=== PATIENT | male | born 1980 | race American Indian/Alaskan Native ===

== ENCOUNTER 2022-02-12 23:05 | Emergency (ER) | payer SELFPAY ==
--- NOTE | 2022-02-12 23:51 | Emergency Department Report ---
Upper Extremity - HPI Chief Complaint: Extremity Injury, Upper Stated Complaint: DISLOCATED RT SHOULDER Time Seen by Provider: 02/12/22 23:23 Upper Extremity: Right Shoulder Occurred When: Today Mechanism: Fall Severity: severe Symptoms: Yes Pain with Movement, Yes Deformity, Yes Limited Range of Movement, No Numbness, No Weakness, No Swelling, No Bruising/Ecchymosis, No Laceration or Abrasion ED Review of Systems ROS: Stated complaint: DISLOCATED RT SHOULDER Other details as noted in HPI Comment: All other systems reviewed and negative Constitutional: no symptoms reported Eyes: denies: eye pain, eye discharge, vision change Respiratory: denies: no symptoms reported, cough, orthopnea, shortness of breath, SOB with exertion, SOB at rest, stridor, wheezing Cardiovascular: denies: chest pain, palpitations, dyspnea on exertion, orthopnea, edema, syncope, paroxysmal nocturnal dyspnea Endocrine: denies: no symptoms reported, excessive sweating, flushing, intolerance to cold, intolerance to heat, increased hunger, increased thirst, increased urine, unexplained weight gain, unexplained weight loss Gastrointestinal: denies: abdominal pain, nausea, vomiting, diarrhea, constipation, hematemesis, melena Genitourinary: denies: urgency, dysuria, frequency, hematuria, discharge, testicular pain, testicular mass, other Musculoskeletal: denies: back pain, joint swelling, arthralgia Skin: denies: rash, lesions, change in color, change in hair/nails, pruritus Neurological: denies: headache, numbness, paresthesias, confusion, abnormal gait, vertigo, other Psychiatric: denies: anxiety, depression, auditory hallucinations, visual hallucinations, homicidal thoughts, suicidal thoughts Hematological/Lymphatic: denies: easy bleeding, easy bruising, swollen glands ED Past Medical Hx - Past Medical History Hx Hypertension: Yes Hx Congestive Heart Failure: Yes Hx Diabetes: No - Surgical History Past Surgical History?: No - Social History Smoking Status: Never Smoker Substance Use Type: None - Medications Home Medications: Home Medications Medication Instructions Recorded Confirmed Last Taken Type Ibuprofen [Motrin 800 MG tab] 800 mg PO Q8HR PRN 10 Days #30 02/13/22 Unknown Rx tablet traMADoL [Ultram 50 MG tab] 50 mg PO Q6HR PRN 3 Days #12 tablet 02/13/22 Unknown Rx Upper Extremity Exam - Exam General: Vital signs noted. No distress. Alert and acting appropriately. Head and Torso: No HEENT Abnormality, No Neck Tenderness, No Chest/Lungs Abnormality, No Abdominal Tenderness, No Back Tenderness Shoulder Exam: Yes Shoulder Tenderness, Yes Shoulder Deformity, No Clavicle Tenderness, No Normal Range of Motion in Shoulder (pt has severe pain; arm abducted and being held on box), No AC Joint Tenderness Arm Exam: No Arm/Humerus Tenderness, No Arm Deformity Elbow: No Elbow Tenderness, No Normal Range of Motion in Elbow, No Elbow Deformity Forearm: No Forearm Tenderness, No Forearm Deformity, No Pain with Pronation, No Pain with Supination Wrist: No Wrist Tenderness, No Normal ROM in Wrist, No Wrist Deformity, No Snuffbox Tenderness, No Pain with Axial Thumb Compression Hand: No Hand Tenderness, No Hand Deformity, No Digit Tenderness, No Normal ROM in Digit(s), No Digit(s) Deformity CMS Exam: No Broken Skin, No Normal Distal Pulses, No Normal Capillary Refill, No Normal Distal Sensation ED Course - Reevaluation(s) Reevaluation #1: 02/12/22 23:53 pt ordered for analgesics; awaiting administration of analgesics by his emergency department nurse, Edith. Plan for procedural sedation discussed at length with the patient. He verbalized understanding Reevaluation #2: 02/13/22 01:32 pt is well appearing; he is laughing, smiling, and comfortable appearing; denies any new or evolving pain , weakness or paresthesias in his right upper extremity, repeat x-ray results discussed at length with the patient and his w shanique, patient verbalized understanding, advised to keep sling in place until he is cleared by orthopedic surgeon on follow-up appointment - Moderate Sedation Indications: fracture/dislocation redu ASA Class: III Mallampati Airway Score: 4 Time of Last PO Intake: 19:30 Preparation: bus driver/monitor applied, pulse oximeter, capnometry used, supplemental O2 applied, suction/airway equipment at bedside, IV secured Ketamine: IV Ketamine Dose: 100 (mg) IV Propofol Dose (mgs): 100 (mg) Reversal Agents Used: other (none) Complications: none Interventions: other (n/a) Patient Tolerated Procedure: well, no complications - Orthopedic Joint Reduction Joint #1 Consent Obtained: verbal consent Time Out Performed: Yes Side: right Joint Reduction Location: shoulder Analgesia: moderate sedation Shoulder Technique Used (if applicable): external rotation Technique Used: direct manipulation Post-Reduction Neuro Exam: intact Post-Reduction Vascular Exam: intact Post Reduction X-Ray Obtained: Yes Post Reduction X-Ray Results: reduced (pt given ketamine 100mg IVP, and propofol 100mg IVP; shoulder was reduced on first attempt successfully; patient tolerated procedure without difficulty) Splint Applied: Yes Patient Tolerated Procedure: well ED Medical Decision Making - Lab Data Result diagrams: 02/13/22 00:00 02/13/22 00:00 - Radiology Data Radiology results: report reviewed - Medical Decision Making 41-year-old morbidly obese male presents for evaluation of traumatic right shoulder dislocation status post mechanical slip and fall while at work. Patient denies pain to any other location of his body denies any head injury loss of consciousness neck pain or paresthesias. Vital signs stable. Patient neurovascular intact. X-rays obtained which confirmed shoulder dislocation. Patient underwent procedural sedation by me and his shoulder was reduced directly by me at his bedside. He tolerated this procedure without incident and during the procedure he received a total of 100 mg of ketamine IV, and 100 mg of propofol IV. Post reduction x-rays obtained which consists firmed successful r eduction of shoulder dislocation. Neurovascular status rechecked again in patient's right upper extremity and he remained normal and intact. Sling was immediately applied. Patient given Toradol for additional pain management. He was advised to remain in his sling until he is cleared by follow-up orthopedic surgeon, Dr. Amaya. His information was provided to the patient at the time of discharge. No further emergent work-up warranted. Patient stable for discharge to home. Critical Care Time: No Critical care attestation.: If time is entered above; I have spent that time in minutes in the direct care of this critically ill patient, excluding procedure time. ED Disposition Clinical Impression: Dislocation, shoulder closed Disposition: HOME / SELF CARE / HOMELESS Is pt being admited?: No Does the pt Need Aspirin: No Condition: Stable Instructions: Shoulder Dislocation, Byeh-by-Pcmw, How to Use a Shoulder Immobilizer Additional Instructions: A dislocation occurs when any bone is moved out of its normal anatomical position or place in the body. You sustained a dislocation of your right shoulder. It was reduced today in the emergency department which means it was put back into place. Please keep your sling on continuously until you are cleared by the follow-up orthopedic surgeon. Telephoned Dr. Amaya, the on-call orthopedic surgeon, to schedule an immediate outpatient follow-up appointment for reassessment and further management. This is very important. Avoid any sudden movements using your shoulder. This includes movements such as raising your arms to put on close, raising your arm to put something into or remove something for cabinet, etc. For any pain that you may experience, take ibuprofen as needed for pain. Alternate ibuprofen with acetaminophen for additional pain management. If your pain is not improved or controlled with either ibuprofen alone, or alternating dosages of ibuprofen and acetaminophen, you may take tramadol. Given that tramadol is a narcotic, it should not be taken if you are going to operate any heavy machinery such as drive a car. Return to the nearest emergency department soon as possible if you develop recurrent shoulder dislocation, numbness in your arm, weakness in your arm, or if any other new worrisome symptoms develop Prescriptions: Ibuprofen [Motrin 800 MG tab] 800 mg PO Q8HR PRN 10 Days #30 tablet PRN Reason: Pain, Moderate (4-6) traMADoL [Ultram 50 MG tab] 50 mg PO Q6HR PRN 3 Days #12 tablet PRN Reason: Pain Referrals: JL AMAYA MD [Staff Physician] - 3-5 Days
[2022-02-12] MEDS: ONDANSETRON 4 MG/2 ML INJ IV ONE ×2 (23:53→23:54)
[2022-02-12] MEDS: SODIUM CHLORIDE 0.9% 1000 ML 1,000 ML IV ONE (23:54)
--- NOTE | 2022-02-13 | XRay Report ---
RIGHT SHOULDER 3 VIEWS INDICATION / CLINICAL INFORMATION: r/o R shoulder dislocation. COMPARISON: None available. FINDINGS: BONES / JOINT(S): Negative for fracture. Subcoracoid dislocation of the humeral head. No significant arthritis. SOFT TISSUES: No significant abnormality. ADDITIONAL FINDINGS: None. Signer Name: Johnathan Rodriguez MD Signed: 02/12/2022 11:55 PM Workstation Name: [id number]
[2022-02-13] MEDS ORDERED: propofoL 200 MG/20 ML VIAL IV ONE (00:07)
[2022-02-13] MEDS ORDERED: KETAMINE 500 MG/5 ML VIAL MDV IV ONE (00:07)
[2022-02-13] MEDS ORDERED: MORPHINE 4 MG/1 ML INJ IV ONE (00:16)
[2022-02-13 00:20] LABS: Basophils # (Auto) 0.1 K/mm3 (0.0-0.1); Basophils % (Auto) 0.9 % (0.0-1.8); Eosinophils % (Auto) 0.5 % (0.0-4.3); Hematocrit 44.3 % (35.5-45.6); Hemoglobin 14.6 gm/dl (11.8-15.2); Lymphocytes # (Auto) 1.1 K/mm3 (1.2-5.4); Lymphocytes % (Auto) 14.9 % (13.4-35.0); Mean Corpuscular HGB Conc 33 % (32-34); Mean Corpuscular Volume 88 fl (84-94); Monocytes # (Auto) 0.5 K/mm3 (0.0-0.8); Monocytes % (Auto) 6.7 % (0.0-7.3); Platelet Count 225 K/mm3 (140-440); Red Blood Count 5.02 M/mm3 (3.65-5.03); Red Cell Distribution Width 14.7 % (13.2-15.2)
[2022-02-13 00:29] LABS: BUN/Creatinine Ratio 8; Blood Urea Nitrogen 11 mg/dL (9-20); Calcium 9.4 mg/dL (8.4-10.2); Hemolysis Index 11
--- NOTE | 2022-02-13 01:24 | XRay Report ---
RIGHT SHOULDER 2 VIEWS INDICATION / CLINICAL INFORMATION: POST REDUCT RT SHOULDER. COMPARISON: Previous day. FINDINGS: BONES / JOINT(S): Satisfactory reduction at the glenohumeral joint. No fracture identified. No signif icant arthritis. SOFT TISSUES: No significant abnormality. ADDITIONAL FINDINGS: None. Signer Name: Johnathan Rodriguez MD Signed: 02/13/2022 1:19 AM Workstation Name: [id number]
[2022-02-13] MEDS ORDERED: KETOROLAC 30 MG/1 ML INJ IV ONE ×2 (01:37→01:52)
[2022-02-13] MEDS ORDERED: KETOROLAC 30 MG/1 ML INJ ONE (01:52)
[2022-02-13] MEDS: SODIUM CHLORIDE 0.9% 1000 ML 1,000 ML IV ONE (02:09)
[2022-02-13 04:22] VITALS: BP 161/107
== END 2022-02-13 02:35 | disposition home or self-care (01) ==
LOC: ED 23:05
DX: S43.004A Unspecified dislocation of right shoulder joint, initial encounter (principal); I11.0 Hypertensive heart disease with heart failure; I50.9 Heart failure, unspecified; W19.XXXA Unspecified fall, initial encounter; Y93.89 Activity, other specified; Y92.89 Other specified places as the place of occurrence of the external cause; Y99.0 Civilian activity done for income or pay
CPT/HCPCS: 23650; 36415; 73030; 80048; 85025; 96361; 96374; 96375; 99284; J1885; J2270; J2405; J2704; J3490; J7030